=== PATIENT | male | born 1945 | race Caucasian/White ===

== ENCOUNTER 2021-08-22 10:44 | Outpatient (CLI) | payer MEDICARE | END 2021-08-22 10:45 | disposition home or self-care (01) | LOC: CSHMRI 10:44 | PROVIDERS: ATTEND Family Medicine | DX: L03.116 Cellulitis of left lower limb (principal); L97.522 Non-pressure chronic ulcer of other part of left foot with fat layer exposed; M86.9 Osteomyelitis, unspecified; S96.012A Strain of muscle and tendon of long flexor muscle of toe at ankle and foot level, left foot, initial encounter; S96.212A Strain of intrinsic muscle and tendon at ankle and foot level, left foot, initial encounter; S83.272A Complex tear of lateral meniscus, current injury, left knee, initial encounter ==

== ENCOUNTER 2021-08-30 08:13 | Outpatient (CLI) | payer OTHER | END 2021-08-30 08:14 | disposition home or self-care (01) | LOC: CSHWCC 08:13 | PROVIDERS: ATTEND Nurse Practitioner Family | DX: T87.89 Other complications of amputation stump (principal); T81.89XD Other complications of procedures, not elsewhere classified, subsequent encounter; Z89.412 Acquired absence of left great toe | CPT/HCPCS: 97605 ==

== ENCOUNTER 2021-09-01 08:42 | Outpatient (CLI) | payer OTHER | END 2021-09-01 08:43 | disposition home or self-care (01) | LOC: CSHWCC 08:42 | PROVIDERS: ATTEND Nurse Practitioner Family | DX: T87.89 Other complications of amputation stump (principal); T81.89XD Other complications of procedures, not elsewhere classified, subsequent encounter; Z89.412 Acquired absence of left great toe | CPT/HCPCS: 97605 ==

== ENCOUNTER 2021-09-05 14:07 | Outpatient (CLI) | payer OTHER | END 2021-09-05 14:08 | disposition home or self-care (01) | LOC: CSHWCC 14:07 | PROVIDERS: ATTEND Nurse Practitioner Family | DX: T81.89XD Other complications of procedures, not elsewhere classified, subsequent encounter (principal) ==

== ENCOUNTER 2021-09-08 08:40 | Outpatient (CLI) | payer OTHER | END 2021-09-08 08:41 | disposition home or self-care (01) | LOC: CSHWCC 08:40 | PROVIDERS: ATTEND Nurse Practitioner Family | DX: T81.89XD Other complications of procedures, not elsewhere classified, subsequent encounter (principal) ==

== ENCOUNTER 2021-09-11 15:34 | Outpatient (CLI) | payer OTHER | END 2021-09-11 15:35 | disposition home or self-care (01) | LOC: CSHWCC 15:34 | PROVIDERS: ATTEND Nurse Practitioner Family | DX: T87.89 Other complications of amputation stump (principal); Z89.412 Acquired absence of left great toe ==

== ENCOUNTER 2021-09-14 15:24 | Outpatient (CLI) | payer OTHER | END 2021-09-14 15:25 | disposition home or self-care (01) | LOC: CSHWCC 15:24 | PROVIDERS: ATTEND Nurse Practitioner Family | DX: T81.89XD Other complications of procedures, not elsewhere classified, subsequent encounter (principal) ==

== ENCOUNTER 2021-09-18 14:07 | Outpatient (CLI) | payer OTHER | END 2021-09-18 14:08 | disposition home or self-care (01) | LOC: CSHWCC 14:07 | PROVIDERS: ATTEND Nurse Practitioner Family | DX: T87.89 Other complications of amputation stump (principal); Z89.412 Acquired absence of left great toe ==

== ENCOUNTER 2021-09-25 11:08 | Outpatient (CLI) | payer OTHER | END 2021-09-25 11:09 | disposition home or self-care (01) | LOC: CSHWCC 11:08 | PROVIDERS: ATTEND Nurse Practitioner Family | DX: T87.89 Other complications of amputation stump (principal); Z89.412 Acquired absence of left great toe ==

== ENCOUNTER 2021-10-02 14:38 | Outpatient (CLI) | payer OTHER | END 2021-10-02 14:39 | disposition home or self-care (01) | LOC: CSHWCC 14:38 | PROVIDERS: ATTEND Nurse Practitioner Family | DX: T81.89XD Other complications of procedures, not elsewhere classified, subsequent encounter (principal); T87.89 Other complications of amputation stump; Z89.412 Acquired absence of left great toe | CPT/HCPCS: 97139; G0463; 99213 ==

== ENCOUNTER 2021-10-09 13:48 | Outpatient (CLI) | payer OTHER | END 2021-10-09 13:49 | disposition home or self-care (01) | LOC: CSHWCC 13:48 | PROVIDERS: ATTEND Nurse Practitioner Family | DX: T81.89XD Other complications of procedures, not elsewhere classified, subsequent encounter (principal) | CPT/HCPCS: 99213; G0463 ==